=== PATIENT | male | born 1945 | race Caucasian/White ===

== ENCOUNTER 2020-01-19 08:35 | Outpatient (CLI) | payer MEDICARE ==
--- NOTE | 2020-01-19 10:14 | MRI ---
MRI lumbar spine noncontrast HISTORY: Low back pain. Radiculopathy. FINDINGS: Prominent leftward convex curvature correlates with findings corresponding radiographs. No evidence of compression fracture. There is desiccation of all of the intervertebral discs with mild discogenic endplate changes within the bone marrow. Images including the retroperitoneum show cortical cysts of the right kidney. T12-L1: Minimal disc bulge. Osteophytosis of the facets. Small bilateral Tarlov cysts. Central canal and left neural foramen are patent. Moderate stenosis of the right neural foramen. L1-2: Complete loss of disc space height. Minimal degenerative retrolisthesis. Posterior disc bulge a nd circumferential degenerative changes. Mild to moderate stenosis of the central canal. Severe right and mild to moderate left foraminal stenoses. L2-3: Complete loss of disc space height. Posterior osteophyte/disc complex and circumferential degen erative changes. Severe stenosis of the central canal. Moderate stenosis of each neural foramen. L3-4: Complete loss of disc space height. Mild posterior osteophyte/disc complex and circumferential degenerative changes. Severe stenosis of the central canal. Moderate right and severe left foraminal stenoses. L4-5: Near complete loss of disc space height. Posterior osteophyte/disc complex and circumferential degenerative changes. Very severe stenosis of the central canal. Moderate right and severe left foraminal stenoses. L5-S1: Osteophytosis of the facets. Central canal and neural foramina are patent. IMPRESSION : Prominent multilevel degenerative changes throughout the lumbar spine, with significant central canal and foraminal stenoses as detailed above. Central canal stenosis most severe at the L4-5 level.
--- NOTE | 2020-01-19 10:19 | RAD ---
LUMBAR SPINE 2 VIEWS: Date: 01/19/2020 INDICATION: 74-year-old male with lumbar radicular pain. COMPARISON: None. FINDINGS: There are five lumbar-type vertebrae. There is prominent levoscoliosis centered at L1-L2 of approxima tely 40 degrees. There is multilevel moderate disc degenerative disease. There is moderate facet oste oarthrosis at L4-5 and L5-S1. SI joints are normal appearing. No acute fracture or subluxation is not ed. Visualized bowel gas pattern is unobstructed. No suspicious calcifications are evident. IMPRESSION: Moderate lumbar spondylosis with levoscoliosis. POS: AH
--- NOTE | 2020-01-19 10:43 | RAD ---
SINUS SERIES 1 VIEW FOR MRI CLEARANCE: Date: 01/19/2020 COMPARISON: None. FINDINGS: No radiopaque foreign body is evident within the orbits. No air fluid level is evident. No definite d isplaced fracture is noted. IMPRESSION: No radiopaque foreign body that would preclude a MRI evaluation based on orbits. Recommend correlatio n with the clinical examination and patient's history for possible pacemaker placement. POS: AH
== END 2020-01-19 08:36 | disposition home or self-care (01) ==
LOC: BICMRI 08:35
PROVIDERS: ATTEND Family Medicine
DX: M47.26 Other spondylosis with radiculopathy, lumbar region (principal); M48.061 Spinal stenosis, lumbar region without neurogenic claudication; M41.9 Scoliosis, unspecified
CPT/HCPCS: 70210; 72100; 72148

== ENCOUNTER 2020-04-13 09:42 | Outpatient (CLI) | payer MEDICARE ==
--- NOTE | 2020-04-13 11:01 | CT ---
CT arteriogram chest with IV contrast and 3-D imaging HISTORY: Left atrial appendage ligation. FINDINGS: There is good contrast opacification of the pulmonary arteries and thoracic aorta with norm al branching of the great vessels at the aortic arch. Metallic device projecting left anterolaterally from the left atrium is at the level of the atrial appendage. No residual contrast ev ident within and appendageal cavity. Mild atelectasis at each lung base. No focal lung mass. No pleural fluid, pneumothorax, or mediastina l adenopathy. Old right rib fractures. Small hiatal hernia. Largest cyst of the right renal cortex measures up to 4.9 cm length on the axial images. IMPRESSION : Left atrial appendage occlusion device without residual cavity.
[2020-04-13] MEDS ORDERED: Iopamidol 370 76% 100 ML VIAL ONE (14:31)
== END 2020-04-13 09:43 | disposition home or self-care (01) ==
LOC: BICCT 09:42
PROVIDERS: ATTEND Internal Medicine Cardiovascular Disease
DX: Z48.813 Encounter for surgical aftercare following surgery on the respiratory system (principal); Z98.890 Other specified postprocedural states
CPT/HCPCS: 71275; 82565; Q9967

== ENCOUNTER 2020-05-18 05:44 | Day surgery (SDC) | payer MEDICARE ==
[2020-05-16 15:01] VITALS: BMI 35.2
[2020-05-18] MEDS ORDERED: Lidocaine 1% (PF) 30 ML VIAL ONE (06:37)
[2020-05-18] MEDS ORDERED: Fentanyl 100 MCG/2 ML VIAL ONE ×3 (06:44→09:51)
[2020-05-18] MEDS ORDERED: Heparin 10,000 UNITS/ 10 ML VIAL ONE (06:49)
[2020-05-18] MEDS ORDERED: PHENYLEPHRINE-NS 100 MCG/ML 10 ML SYRINGE ONE (08:59)
[2020-05-18] MEDS ORDERED: Glycopyrrolate 0.2 MG/ML 5 ML SYRINGE ONE (08:59)
[2020-05-18] MEDS ORDERED: Lidocaine 1% PF 5 ML VIAL ONE (08:59)
[2020-05-18] MEDS ORDERED: PROPOFOL 200 MG/20 ML VIAL ONE (08:59)
[2020-05-18] MEDS ORDERED: Dexamethasone 20 MG/5 ML VIAL ONE (08:59)
[2020-05-18] MEDS ORDERED: Rocuronium Bromide 10 MG/ML (10ML VIAL) ONE (08:59)
[2020-05-18] MEDS ORDERED: Ondansetron PF 4 MG/2 ML Vial ONE (08:59)
--- NOTE | 2020-05-18 09:36 | OP ---
DATE OF PROCEDURE: 05/18/2020 PRIMARY CARE PHYSICIAN: Davy Terry MD REFERRING HOURLY SHIFT MANAGER: New Izaguirre MD PREOPERATIVE DIAGNOSIS: Typical atrial flutter. POSTOPERATIVE DIAGNOSIS: Typical counter-clockwise right atrial flutter. PROCEDURES PERFORMED: 1. Cavotricuspid isthmus ablation. 2. Left atrial pacing and recording. 3. 3D mapping of arrhythmia. HOURLY SHIFT MANAGER: Williams Pugh MD EVAPORATOR OPERATOR MOLASSES: None. ANESTHESIA: General endotracheal. SPECIMENS: None. ESTIMATED BLOOD LOSS: 20 mL. COMPLICATIONS: None. DESCRIPTION OF PROCEDURE: The risks, benefits, and alternatives of transesophageal echocardiogram and radiofrequency ablation were discussed prior to the procedure. The patient was brought electively to the electrophysiology suite. Transesophageal echocardiogram showed no evidence of thrombus. There was an intact left atrial appendage ligation with mild left atrial enlargement, ejection fraction of 60%, and aortic sclerosis. There was mild mitral regurgitation and mild tricuspid regurgitation. Bilateral femoral areas are prepped and draped in a sterile fashion. Lidocaine was infiltrated in the bilateral femoral areas. Using ultrasound, 2 long 7-Tu[place] sheaths were placed in the left femoral vein and an Agilis sheath was placed in the right femoral vein. Catheters were advanced under 3D guidance, and 3D mapping was used to guide the ablation. A 20-pole catheter was placed in the lateral right atrium. A decapolar catheter was placed in the coronary sinus. Left atrial pacing and recording were performed. Using a TactiCath catheter and Agilis sheath, mapping confirmed that the tachycardia was typical counter-clockwise right atrial flutter. Tachycardia cycle length 241 milliseconds. Radiofrequency energy was then applied to the cavotricuspid isthmus. So, the tachycardia terminated during the ablation. [id number] and chcvecn-ke-tazjht block were confirmed 20 minutes after the last radiofrequency application. Conduction across the isthmus was 187 milliseconds. Sheaths were pulled at the end of case. Vascade closure devices were used. The patient was extubated and transferred to recovery area in good condition. CONCLUSION: 1. Typical atrial flutter. 2. Successful cavotricuspid isthmus ablation. PLAN: 1. Discharge home. 2. Continue Eliquis for 1 month. 3. Follow up with CECILIA Stanton, June 12, 2020 at 11 a.m. Job ID: [id number]
--- NOTE | 2020-05-18 21:04 | EKG ---
Test Reason : POST ABLATION Blood Pressure : / mmHG Vent. Rate : 082 BPM Atrial Rate : 082 BPM P-R Int : 214 ms QRS Dur : 120 ms QT Int : 418 ms P-R-T Axes : 062 -41 038 degrees QTc Int : 488 ms Sinus rhythm with 1st degree A-V block Left axis deviation Non-specific intra-ventricular conduction delay Abnormal ECG No previous ECGs available Confirmed by Lalo HUNTER ([id number]) on 05/18/2020 9:04:48 PM Referred By: PATRICIA Confirmed By:Lalo HUNTER
== END 2020-05-18 13:40 | disposition home or self-care (01) ==
LOC: CCL 05:44
PROVIDERS: ATTEND Internal Medicine Cardiovascular Disease
PROC: 02583ZZ Destruction of Conduction Mechanism, Percutaneous Approach (ICD-10-PCS; principal; 2020-05-18)
PROC: 02K83ZZ Map Conduction Mechanism, Percutaneous Approach (ICD-10-PCS; 2020-05-18)
DX: I48.3 Typical atrial flutter (principal); I10 Essential (primary) hypertension; I25.10 Atherosclerotic heart disease of native coronary artery without angina pectoris; I25.2 Old myocardial infarction; E78.5 Hyperlipidemia, unspecified; E66.9 Obesity, unspecified; Z68.35 Body mass index [BMI] 35.0-35.9, adult; Z79.01 Long term (current) use of anticoagulants; Z79.82 Long term (current) use of aspirin; Z79.899 Other long term (current) drug therapy; Z87.891 Personal history of nicotine dependence; Z95.1 Presence of aortocoronary bypass graft; Z96.651 Presence of right artificial knee joint
CPT/HCPCS: 76942; 93005; 93010; 93312; 93613; 93653; C1731; C1894; C2630; J1100; J1644; J2001; J2405; J2704; J3010

== ENCOUNTER 2020-06-15 10:48 | Outpatient (CLI) | payer MEDICARE ==
[2020-05-15 12:33] LABS: Mean Corpuscular HGB CONC 32.9 g/dL (32.0-36.0); Mean Corpuscular Hemoglobin 29.9 pg (27.0-33.0); Mean Platelet Volume 9.1 fl (7.4-10.4); Platelet Count 224 10x3/uL (150-450); RBC Distribution Width 13.2 % (11.5-14.5); Red Blood Cell (RBC) Count 5.01 10x6/uL (4.32-5.72); White Blood Cell (WBC) Count 6.8 10x3/uL (3.5-10.5)
[2020-05-15 12:47] LABS: INR-International Normal Ratio 1.1; Prothrombin Time 11.1 sec (9.5-12.1)
[2020-05-15 13:16] LABS: Anion Gap 16 mmol/L (10-20); BUN (Urea Nitrogen) 19 mg/dL (8.4-25.7); Calc. Creatinine Clearance 0 mL/min (70-130); Carbon Dioxide 25 mmol/L (23-31); Chloride 103 mmol/L (98-107); Glucose 113 mg/dL (83-110); Potassium 4.7 mmol/L (3.5-5.1); Sodium 139 mmol/L (136-145)
[2020-05-16 03:44] LABS: SARS-CoV-2 PCR by NAA Not Detected (NotDetected)
[2020-06-08 11:08] LABS: Hemoglobin 14.7 g/dL (13.5-17.5); Mean Corpuscular Volume 90.8 fl (81.2-95.1); Mean Platelet Volume 9.6 fl (7.4-10.4); Platelet Count 202 10x3/uL (150-450); RBC Distribution Width 13.1 % (11.5-14.5)
[2020-06-08 11:15] LABS: Anion Gap 12 mmol/L (10-20); BUN (Urea Nitrogen) 15 mg/dL (8.4-25.7); Calc. Creatinine Clearance 0 mL/min (70-130); Calcium 8.9 mg/dL (7.8-10.44); Carbon Dioxide 30 mmol/L (23-31); Chloride 103 mmol/L (98-107); Glucose 92 mg/dL (83-110); Potassium 4.6 mmol/L (3.5-5.1); Sodium 140 mmol/L (136-145)
[2020-06-08 11:20] LABS: PTT 30.2 sec (22.0-33.0)
[2020-06-08 20:25] LABS: SARS-CoV-2 PCR by NAA Not Detected (NotDetected)
[2020-06-15 22:32] LABS: SARS-CoV-2 PCR by NAA Not Detected (NotDetected)
== END 2020-06-15 10:49 | disposition home or self-care (01) ==
LOC: LABBT 10:48
PROVIDERS: ATTEND Surgery
DX: Z01.818 Encounter for other preprocedural examination (principal); M54.16 Radiculopathy, lumbar region; M48.062 Spinal stenosis, lumbar region with neurogenic claudication; Z20.822 Contact with and (suspected) exposure to COVID-19
CPT/HCPCS: 80048 ×2; 85027 ×2; 85610 ×2; 85730; U0003 ×2; U0005 ×2; 87635

== ENCOUNTER 2020-06-20 08:09 | Inpatient (IN) | payer MEDICARE ==
[2020-06-19 11:41] VITALS: BMI 35.2
[2020-06-20] MEDS ORDERED: Thrombin 5000 UNITS/5 ML VIAL ONE (10:05)
[2020-06-20] MEDS ORDERED: Fentanyl 250 MCG/5 ML VIAL ONE (10:15)
[2020-06-20] MEDS ORDERED: Glycopyrrolate 0.2 MG/ML 5 ML SYRINGE ONE (10:28)
[2020-06-20] MEDS ORDERED: Rocuronium Bromide 10 MG/ML (10ML VIAL) ONE (10:28)
[2020-06-20] MEDS ORDERED: PROPOFOL 200 MG/20 ML VIAL ONE (10:28)
[2020-06-20] MEDS ORDERED: Lidocaine 1% PF 5 ML VIAL ONE (10:28)
[2020-06-20] MEDS ORDERED: ePHEDrine 50 MG/ML VIAL ONE (10:28)
[2020-06-20] MEDS ORDERED: PHENYLEPHRINE-NS 100 MCG/ML 10 ML SYRINGE ONE (10:28)
[2020-06-20] MEDS ORDERED: Ondansetron PF 4 MG/2 ML Vial ONE (10:28)
[2020-06-20] MEDS ORDERED: Phenylephrine 10 MG/ML VIAL ONE (11:09)
[2020-06-20] MEDS ORDERED: Promethazine HCl 25 MG/ML VIAL SLOW IVP PRN (12:50)
[2020-06-20] MEDS ORDERED: Promethazine HCl 25 MG/ML VIAL IM PRN (12:50)
[2020-06-20] MEDS ORDERED: Ondansetron HCl/PF 4 MG/2 ML Vial IVP PRN (12:50)
[2020-06-20] MEDS ORDERED: Morphine 2 MG/ML VIAL SLOW IVP PRN (12:58)
[2020-06-20] MEDS ORDERED: Milk Of Magnesia 30 ML UDCUP PO PRN (12:58)
[2020-06-20] MEDS ORDERED: traMADol HCl 50 MG TAB PO PRN (12:58)
[2020-06-20] MEDS ORDERED: Acetaminophen/Codeine 30-300mg Tablet PO PRN (12:58)
[2020-06-20] MEDS ORDERED: Fentanyl 100 MCG/2 ML VIAL ONE ×2 (13:55→14:46)
[2020-06-20] MEDS ORDERED: HYDROmorphone 2 MG/ML VIAL ONE (14:52)
[2020-06-20] MEDS: CEFAZOLIN 2 GM in Premix Bag 1 BAG IVPB SCH ×2 (18:01→23:05)
[2020-06-20] MEDS: Metoprolol Tartrate 25 MG TAB PO SCH (20:10)
[2020-06-20] MEDS: tiZANidine HCl 4 MG TAB PO PRN (20:10)
[2020-06-20] MEDS: Sodium Chloride 0.9% 1,000 ML IV SCH ×2 (20:11→23:23)
[2020-06-20] MEDS: Ondansetron PF 4 MG/2 ML Vial IVP PRN (23:06)
[2020-06-20] MEDS: HYDROcodone/Acetaminophen 7.5/325 mg Tablet PO PRN (23:06)
[2020-06-21] MEDS: tiZANidine HCl 4 MG TAB PO PRN ×3 (05:43→22:05)
[2020-06-21] MEDS: HYDROcodone/Acetaminophen 7.5/325 mg Tablet PO PRN ×4 (05:44→22:05)
[2020-06-21] MEDS: FLUoxetine HCl 20 MG CAP PO SCH (09:28)
[2020-06-21] MEDS: Atorvastatin Calcium 10 MG TAB PO SCH (09:31)
[2020-06-21] MEDS: Metoprolol Tartrate 25 MG TAB PO SCH ×2 (09:33→20:56)
[2020-06-21] MEDS: Amlodipine 10 MG TAB PO SCH (17:34)
[2020-06-21] MEDS: Potassium Chloride 20 MEQ TAB PO SCH (17:34)
[2020-06-21] MEDS: Furosemide 20 MG TAB PO SCH (17:34)
[2020-06-21] MEDS: Sodium Chloride 0.9% 1,000 ML IV SCH (17:35)
[2020-06-21] MEDS ORDERED: Sodium Chloride 0.9% 500 ML IVPB SCH (21:15)
[2020-06-22] MEDS: HYDROcodone/Acetaminophen 7.5/325 mg Tablet PO PRN ×4 (03:38→20:39)
[2020-06-22] MEDS: Sodium Chloride 0.9% 1,000 ML IV SCH ×2 (04:51→18:23)
[2020-06-22] MEDS: tiZANidine HCl 4 MG TAB PO PRN (06:12)
[2020-06-22] MEDS ORDERED: Polyethylene Glycol 3350 17 GM Packet PO PRN (07:49)
[2020-06-22] MEDS ORDERED: Bisacodyl 10 MG SUPP PR SCH (08:00)
[2020-06-22] MEDS: Docusate 100 MG CAP PO SCH ×2 (08:27→20:39)
[2020-06-22] MEDS: FLUoxetine HCl 20 MG CAP PO SCH (08:28)
[2020-06-22] MEDS: Atorvastatin Calcium 10 MG TAB PO SCH (08:28)
[2020-06-22] MEDS: Metoprolol Tartrate 25 MG TAB PO SCH ×2 (08:28→20:38)
[2020-06-22] MEDS: Amlodipine 10 MG TAB PO SCH (08:29)
[2020-06-22] MEDS: Potassium Chloride 20 MEQ TAB PO SCH (08:32)
[2020-06-22] MEDS: Furosemide 20 MG TAB PO SCH (08:32)
[2020-06-22] MEDS ORDERED: Diazepam 5 MG TAB PO SCH (12:00)
[2020-06-22] MEDS: Diazepam 5 MG TAB PO SCH ×2 (18:02→21:46)
[2020-06-23] MEDS: Mag-Al 1200 mg/1200 mg/30 ML UDCUP PO PRN (00:40)
[2020-06-23] MEDS: hydrALAZINE 20 MG/ML VIAL SLOW IVP PRN (03:55)
[2020-06-23] MEDS: tiZANidine HCl 4 MG TAB PO PRN (04:50)
[2020-06-23] MEDS: Diazepam 5 MG TAB PO SCH ×3 (06:02→22:28)
[2020-06-23] MEDS: Sodium Chloride 0.9% 1,000 ML IV SCH ×2 (08:26→21:13)
[2020-06-23] MEDS: FLUoxetine HCl 20 MG CAP PO SCH (08:35)
[2020-06-23] MEDS: Docusate 100 MG CAP PO SCH ×2 (08:36→21:12)
[2020-06-23] MEDS: Atorvastatin Calcium 10 MG TAB PO SCH (08:36)
[2020-06-23] MEDS: Amlodipine 10 MG TAB PO SCH (08:37)
[2020-06-23] MEDS: Metoprolol Tartrate 25 MG TAB PO SCH ×2 (08:37→21:12)
[2020-06-23] MEDS: Potassium Chloride 20 MEQ TAB PO SCH (08:40)
[2020-06-23] MEDS: Furosemide 20 MG TAB PO SCH (08:40)
[2020-06-23] MEDS: Ondansetron PF 4 MG/2 ML Vial IVP PRN (18:32)
[2020-06-24] MEDS: hydrALAZINE 20 MG/ML VIAL SLOW IVP PRN (04:04)
[2020-06-24] MEDS: Ondansetron PF 4 MG/2 ML Vial IVP PRN (06:12)
[2020-06-24] MEDS: Diazepam 5 MG TAB PO SCH ×3 (06:12→19:22)
[2020-06-24] MEDS: Mag-Al 1200 mg/1200 mg/30 ML UDCUP PO PRN (06:12)
[2020-06-24] MEDS: Metoprolol Tartrate 25 MG TAB PO SCH ×2 (09:03→20:38)
[2020-06-24] MEDS: Atorvastatin Calcium 10 MG TAB PO SCH (09:04)
[2020-06-24] MEDS: Potassium Chloride 20 MEQ TAB PO SCH (09:05)
[2020-06-24] MEDS: Furosemide 20 MG TAB PO SCH (09:06)
[2020-06-24] MEDS: Amlodipine 10 MG TAB PO SCH (09:06)
[2020-06-24] MEDS: FLUoxetine HCl 20 MG CAP PO SCH (09:06)
[2020-06-24] MEDS: Docusate 100 MG CAP PO SCH ×2 (09:06→20:38)
[2020-06-24] MEDS: Sodium Chloride 0.9% 1,000 ML IV SCH ×2 (10:19→20:37)
[2020-06-24] MEDS: Bisacodyl 10 MG SUPP PR PRN (10:26)
[2020-06-24] MEDS ORDERED: Fleet Enema 133 ML BOT PR SCH (10:30)
[2020-06-24 14:02] LABS: Hemoglobin 13.6 g/dL (14.0-18.0); Mean Corpuscular HGB CONC 33.4 g/dL (32.0-36.0); Mean Corpuscular Hemoglobin 30.6 pg (27.0-31.0); Mean Corpuscular Volume 91.6 fL (78.0-98.0); Platelet Count 256 thou/uL (130-400); RBC Distribution Width 12.7 % (11.5-14.5); Red Blood Cell (RBC) Count 4.45 mill/uL (4.70-6.10)
[2020-06-24 14:16] LABS: Lactic Acid 1.9 mmol/L (0.5-2.2)
[2020-06-24 14:20] LABS: ALT (SGPT) 13 U/L (8-55); AST (SGOT) 17 U/L (5-34); Albumin 3.6 g/dL (3.4-4.8); Alkaline Phosphatase 106 U/L (40-110); Anion Gap 20 mmol/L (10-20); BUN (Urea Nitrogen) 87 mg/dL (8.4-25.7); Bilirubin, Total 1.1 mg/dL (0.2-1.2); Calc. Creatinine Clearance 16 mL/min (70-130); Calcium 9.3 mg/dL (7.8-10.44); Carbon Dioxide 22 mmol/L (23-31); Chloride 97 mmol/L (98-107); Globulin 3.8 g/dL (2.4-3.5); Glucose 126 mg/dL (83-110); Magnesium 3.2 mg/dL (1.6-2.6); Potassium 4.9 mmol/L (3.5-5.1); Protein, Total 7.4 g/dL (5.8-8.1); Sodium 134 mmol/L (136-145)
[2020-06-24 14:24] LABS: Band 2 % (5-11); Lymphocytes 3 % (21-51); MDiff Complete? YES; Monocytes 10 % (0-10); Neutrophil 85 % (42-75); Platelet Morphology Comment Appears Adequate; Polychromasia SLIGHT = 2-3 cells (100X) (0-2/hpf); Vacuoles SLIGHT
[2020-06-24] MEDS: Acetaminophen 325 MG TAB PO PRN (17:58)
[2020-06-24 20:40] LABS: Phosphorus 6.3 mg/dL (2.3-4.7)
[2020-06-25 05:01] LABS: Hemoglobin 11.9 g/dL (14.0-18.0); Mean Corpuscular HGB CONC 33.2 g/dL (32.0-36.0); Mean Corpuscular Hemoglobin 30.2 pg (27.0-31.0); Mean Corpuscular Volume 91.1 fL (78.0-98.0); Mean Platelet Volume 6.9 fL (7.4-10.4); Platelet Count 213 thou/uL (130-400); RBC Distribution Width 12.6 % (11.5-14.5); Red Blood Cell (RBC) Count 3.92 mill/uL (4.70-6.10); White Blood Cell (WBC) Count 12.9 thou/uL (4.8-10.8)
[2020-06-25 05:12] LABS: Lactic Acid 0.7 mmol/L (0.5-2.2)
[2020-06-25 05:18] LABS: Band 12 % (5-11); Eosinophils 1 % (0-10); Lymphocytes 4 % (21-51); MDiff Complete? YES; Monocytes 9 % (0-10); Neutrophil 74 % (42-75); Platelet Morphology Comment Appears Adequate
[2020-06-25 05:19] LABS: Anion Gap 21 mmol/L (10-20); BUN (Urea Nitrogen) 109 mg/dL (8.4-25.7); Calc. Creatinine Clearance 14 mL/min (70-130); Calcium 8.5 mg/dL (7.8-10.44); Carbon Dioxide 18 mmol/L (23-31); Chloride 99 mmol/L (98-107); Glucose 114 mg/dL (83-110); Magnesium 3.2 mg/dL (1.6-2.6); Potassium 5.2 mmol/L (3.5-5.1); Sodium 133 mmol/L (136-145)
[2020-06-25] MEDS: Diazepam 5 MG TAB PO SCH ×3 (05:51→22:57)
[2020-06-25] MEDS: Sodium Chloride 0.9% 1,000 ML IV SCH ×3 (06:12→23:16)
[2020-06-25 07:37] LABS: Bilirubin Negative (Negative); Blood, Urine 2+ (Negative); Clarity Turbid (Clear); Glucose, Urine (Dipstick) Normal (Negative); Ketone, Urine Negative (Negative); Leukocyte 500 Leu/uL (Negative); Nitrite Negative (Negative); Protein, Urine (Dipstick) Negative (Neg-Trace); RBC/HPF 21-50 HPF (0-3); Specific Gravity, Urine 1.014 (1.002-1.036); Squamous Epithelial 0-3 HPF (0-3); Urobilinogen Normal mg/dL (Less than 2); WBC/HPF Greater than 50 HPF (0-3)
[2020-06-25 07:38] LABS: Bacteria/HPF 1+ HPF (None Seen)
[2020-06-25 07:39] LABS: Urine Culture Reflex Yes Yes
[2020-06-25 07:48] LABS: Potassium, Urine 34.4 mmol/L
[2020-06-25] MEDS: FLUoxetine HCl 20 MG CAP PO SCH (09:20)
[2020-06-25] MEDS: Atorvastatin Calcium 10 MG TAB PO SCH (09:21)
[2020-06-25] MEDS: Amlodipine 10 MG TAB PO SCH (09:21)
[2020-06-25] MEDS: Docusate 100 MG CAP PO SCH ×2 (09:22→20:32)
[2020-06-25] MEDS: Metoprolol Tartrate 25 MG TAB PO SCH ×2 (09:24→20:32)
[2020-06-25] MEDS: cefTRIAXone\\ROCEPHIN 2 GM in Sodium Chloride 0.9% 100 ML IVPB SCH (12:04)
[2020-06-25 12:30] LABS: Anion Gap 18 mmol/L (10-20); BUN (Urea Nitrogen) 91 mg/dL (8.4-25.7); Calc. Creatinine Clearance 22 mL/min (70-130); Calcium 8.9 mg/dL (7.8-10.44); Carbon Dioxide 20 mmol/L (23-31); Chloride 103 mmol/L (98-107); Glucose 122 mg/dL (83-110); Potassium 4.5 mmol/L (3.5-5.1); Sodium 136 mmol/L (136-145)
[2020-06-25] MEDS: Tamsulosin HCl 0.4 MG CAP PO SCH (20:33)
[2020-06-26 05:25] LABS: Anion Gap 14 mmol/L (10-20); BUN (Urea Nitrogen) 45 mg/dL (8.4-25.7); Calc. Creatinine Clearance 88 mL/min (70-130); Calcium 8.5 mg/dL (7.8-10.44); Carbon Dioxide 22 mmol/L (23-31); Chloride 111 mmol/L (98-107); Glucose 107 mg/dL (83-110); Potassium 4.4 mmol/L (3.5-5.1); Sodium 143 mmol/L (136-145)
[2020-06-26 05:26] LABS: Hemoglobin 11.5 g/dL (14.0-18.0); MDiff Complete? YES; Mean Corpuscular HGB CONC 32.9 g/dL (32.0-36.0); Mean Corpuscular Hemoglobin 30.2 pg (27.0-31.0); Mean Corpuscular Volume 91.8 fL (78.0-98.0); Mean Platelet Volume 6.9 fL (7.4-10.4); Platelet Count 214 thou/uL (130-400); RBC Distribution Width 12.7 % (11.5-14.5); Red Blood Cell (RBC) Count 3.79 mill/uL (4.70-6.10); White Blood Cell (WBC) Count 8.2 thou/uL (4.8-10.8)
[2020-06-26 05:27] LABS: Hypochromia SLIGHT = 6-15 cells (100X) (0-5/hpf); Lymphocytes 4 % (21-51); Monocytes 10 % (0-10); Neutrophil 86 % (42-75); Platelet Morphology Comment Appears Adequate
[2020-06-26] MEDS: Diazepam 5 MG TAB PO SCH ×3 (06:22→21:10)
[2020-06-26] MEDS: Dextrose 5% in Water 1,000 ML IV SCH ×2 (08:08→21:10)
[2020-06-26] MEDS: Docusate 100 MG CAP PO SCH ×2 (08:10→20:50)
[2020-06-26] MEDS: Amlodipine 10 MG TAB PO SCH (08:10)
[2020-06-26] MEDS: Metoprolol Tartrate 25 MG TAB PO SCH ×2 (08:10→20:48)
[2020-06-26] MEDS: FLUoxetine HCl 20 MG CAP PO SCH (08:10)
[2020-06-26] MEDS: Atorvastatin Calcium 10 MG TAB PO SCH (08:10)
[2020-06-26] MEDS ORDERED: Fleet Enema 133 ML BOT PR SCH (09:15)
[2020-06-26] MEDS: Bisacodyl 10 MG SUPP PR PRN (09:51)
[2020-06-26] MEDS ORDERED: MD-Gastroview 120 ML BOT ONE (11:10)
[2020-06-26] MEDS: cefTRIAXone\\ROCEPHIN 2 GM in Sodium Chloride 0.9% 100 ML IVPB SCH (12:17)
[2020-06-26] MEDS: Acetaminophen 325 MG TAB PO PRN (13:42)
[2020-06-26] MEDS: Tamsulosin HCl 0.4 MG CAP PO SCH (20:48)
[2020-06-27] MEDS: Dextrose 5% in Water 1,000 ML IV SCH ×2 (04:30→18:08)
[2020-06-27] MEDS: Diazepam 5 MG TAB PO SCH ×3 (05:10→21:46)
[2020-06-27 06:03] LABS: Anion Gap 12 mmol/L (10-20); BUN (Urea Nitrogen) 27 mg/dL (8.4-25.7); Calc. Creatinine Clearance 140 mL/min (70-130); Calcium 8.6 mg/dL (7.8-10.44); Carbon Dioxide 28 mmol/L (23-31); Chloride 112 mmol/L (98-107); Glucose 112 mg/dL (83-110); Potassium 3.7 mmol/L (3.5-5.1); Sodium 148 mmol/L (136-145)
[2020-06-27 06:11] LABS: Band 2 % (5-11); Hemoglobin 11.8 g/dL (14.0-18.0); Lymphocytes 8 % (21-51); MDiff Complete? YES; Mean Corpuscular Hemoglobin 30.7 pg (27.0-31.0); Mean Corpuscular Volume 93.2 fL (78.0-98.0); Mean Platelet Volume 6.5 fL (7.4-10.4); Monocytes 18 % (0-10); Myelocyte 1 % (0-0); Neutrophil 71 % (42-75); Platelet Count 240 thou/uL (130-400); Platelet Morphology Comment Appears Adequate; RBC Distribution Width 12.5 % (11.5-14.5); Red Blood Cell (RBC) Count 3.84 mill/uL (4.70-6.10); White Blood Cell (WBC) Count 8.1 thou/uL (4.8-10.8)
[2020-06-27] MEDS: Polyethylene Glycol 3350 17 GM Packet PO SCH (08:57)
[2020-06-27] MEDS: Amlodipine 10 MG TAB PO SCH (08:58)
[2020-06-27] MEDS: Senokot S 8.6-50 MG TAB PO SCH ×2 (08:58→21:47)
[2020-06-27] MEDS: Docusate 100 MG CAP PO SCH ×2 (08:58→21:44)
[2020-06-27] MEDS: Metoprolol Tartrate 25 MG TAB PO SCH ×2 (08:58→21:44)
[2020-06-27] MEDS: FLUoxetine HCl 20 MG CAP PO SCH (08:59)
[2020-06-27] MEDS: Atorvastatin Calcium 10 MG TAB PO SCH (08:59)
[2020-06-27] MEDS: tiZANidine HCl 4 MG TAB PO PRN ×2 (09:06→22:51)
[2020-06-27] MEDS: Acetaminophen 325 MG TAB PO PRN ×2 (09:06→22:50)
[2020-06-27] MEDS: cefTRIAXone\\ROCEPHIN 2 GM in Sodium Chloride 0.9% 100 ML IVPB SCH (11:47)
[2020-06-27] MEDS: Ciprofloxacin 500 MG TAB PO SCH (21:44)
[2020-06-27] MEDS: Tamsulosin HCl 0.4 MG CAP PO SCH (21:44)
[2020-06-27] MEDS: Melatonin 3 MG TAB PO PRN (22:50)
[2020-06-28] MEDS: Diazepam 5 MG TAB PO SCH ×3 (01:10→20:04)
[2020-06-28] MEDS: Ciprofloxacin 500 MG TAB PO SCH ×2 (06:28→19:54)
[2020-06-28] MEDS: Dextrose 5% in Water 1,000 ML IV SCH (06:28)
[2020-06-28] MEDS: Senokot S 8.6-50 MG TAB PO SCH ×2 (08:36→19:54)
[2020-06-28] MEDS: Docusate 100 MG CAP PO SCH ×2 (08:36→20:03)
[2020-06-28] MEDS: tiZANidine HCl 4 MG TAB PO PRN ×2 (08:36→19:54)
[2020-06-28] MEDS: Atorvastatin Calcium 10 MG TAB PO SCH (08:36)
[2020-06-28] MEDS: FLUoxetine HCl 20 MG CAP PO SCH (08:37)
[2020-06-28] MEDS: Amlodipine 10 MG TAB PO SCH (08:37)
[2020-06-28] MEDS: Metoprolol Tartrate 25 MG TAB PO SCH ×2 (08:37→19:54)
[2020-06-28] MEDS: Polyethylene Glycol 3350 17 GM Packet PO SCH (08:39)
[2020-06-28 08:46] LABS: ALT (SGPT) 19 U/L (8-55); AST (SGOT) 14 U/L (5-34); Albumin 2.9 g/dL (3.4-4.8); Alkaline Phosphatase 109 U/L (40-110); Anion Gap 11 mmol/L (10-20); BUN (Urea Nitrogen) 16 mg/dL (8.4-25.7); Bilirubin, Total 0.5 mg/dL (0.2-1.2); Calc. Creatinine Clearance 146 mL/min (70-130); Calcium 8.2 mg/dL (7.8-10.44); Carbon Dioxide 29 mmol/L (23-31); Chloride 105 mmol/L (98-107); Glucose 113 mg/dL (83-110); Potassium 3.7 mmol/L (3.5-5.1); Protein, Total 5.9 g/dL (5.8-8.1); Sodium 141 mmol/L (136-145)
[2020-06-28] MEDS: Acetaminophen 325 MG TAB PO PRN ×2 (14:50→19:55)
[2020-06-28] MEDS: Tamsulosin HCl 0.4 MG CAP PO SCH (19:53)
[2020-06-28] MEDS: Melatonin 3 MG TAB PO PRN (22:31)
[2020-06-29] MEDS: Ciprofloxacin 500 MG TAB PO SCH (04:35)
[2020-06-29] MEDS: Acetaminophen 325 MG TAB PO PRN ×2 (04:35→14:01)
[2020-06-29] MEDS: tiZANidine HCl 4 MG TAB PO PRN ×2 (04:35→14:01)
[2020-06-29] MEDS: Diazepam 5 MG TAB PO SCH ×2 (06:45→13:22)
[2020-06-29] MEDS: Atorvastatin Calcium 10 MG TAB PO SCH (08:44)
[2020-06-29] MEDS: FLUoxetine HCl 20 MG CAP PO SCH (08:44)
[2020-06-29] MEDS: Docusate 100 MG CAP PO SCH (08:44)
[2020-06-29] MEDS: Metoprolol Tartrate 25 MG TAB PO SCH (08:44)
[2020-06-29] MEDS: Senokot S 8.6-50 MG TAB PO SCH (08:44)
[2020-06-29] MEDS: Polyethylene Glycol 3350 17 GM Packet PO SCH (08:45)
[2020-06-29] MEDS: Amlodipine 10 MG TAB PO SCH (08:47)
[2020-06-29 15:50] VITALS: BP 102/61; TEMP 98.1
== END 2020-06-29 16:22 | DRG 519 ==
LOC: SDC 08:09 → SJJU 08:10 → SDC 06-23 10:14 → SJJU 06-23 10:14
PROVIDERS: ADMIT Surgery; ATTEND Surgery
PROC: 01NB0ZZ Release Lumbar Nerve, Open Approach (ICD-10-PCS; principal; 2020-06-20)
PROC: 00NY0ZZ Release Lumbar Spinal Cord, Open Approach (ICD-10-PCS; 2020-06-20)
DX: M48.062 Spinal stenosis, lumbar region with neurogenic claudication (principal); K56.7 Ileus, unspecified; N17.9 Acute kidney failure, unspecified; E87.2 Acidosis; N39.0 Urinary tract infection, site not specified; K91.89 Other postprocedural complications and disorders of digestive system; I48.92 Unspecified atrial flutter; N13.30 Unspecified hydronephrosis; M54.16 Radiculopathy, lumbar region; I25.10 Atherosclerotic heart disease of native coronary artery without angina pectoris; I10 Essential (primary) hypertension; M19.90 Unspecified osteoarthritis, unspecified site; E78.5 Hyperlipidemia, unspecified; F39 Unspecified mood [affective] disorder; N13.9 Obstructive and reflux uropathy, unspecified; N40.1 Benign prostatic hyperplasia with lower urinary tract symptoms; K21.9 Gastro-esophageal reflux disease without esophagitis; E86.9 Volume depletion, unspecified; R33.9 Retention of urine, unspecified; D72.829 Elevated white blood cell count, unspecified; I25.2 Old myocardial infarction; Z95.1 Presence of aortocoronary bypass graft
CPT/HCPCS: 36415; 71045; 74018; 74176; 74250; 76000; 76770; 80048; 80053; 81001; 82436; 83605; 83735; 83935; 84100; 84105; 84133; 84300; 84560; 85025; 87077; 87086; 87186; 93970; J0360; J0690; J0696; J1170; J2370; J2405; J2704; J3010; J3370; J3490; J7030; Q9963

== ENCOUNTER 2020-07-27 11:15 | Outpatient (CLI) | payer MEDICARE ==
[2020-07-27 12:36] LABS: Hemoglobin 12.2 g/dL (13.5-17.5); Mean Corpuscular HGB CONC 32.5 g/dL (32.0-36.0); Mean Corpuscular Hemoglobin 29.4 pg (27.0-33.0); Mean Corpuscular Volume 90.4 fl (81.2-95.1); Mean Platelet Volume 9.5 fl (7.4-10.4); Platelet Count 198 10x3/uL (150-450); RBC Distribution Width 13.7 % (11.5-14.5); Red Blood Cell (RBC) Count 4.15 10x6/uL (4.32-5.72); White Blood Cell (WBC) Count 12.3 10x3/uL (3.5-10.5)
[2020-07-27 12:49] LABS: Anion Gap 18 mmol/L (10-20); BUN (Urea Nitrogen) 16 mg/dL (8.4-25.7); Calc. Creatinine Clearance 0 mL/min (70-130); Carbon Dioxide 24 mmol/L (23-31); Chloride 101 mmol/L (98-107); Glucose 101 mg/dL (83-110); Potassium 4.2 mmol/L (3.5-5.1); Sodium 139 mmol/L (136-145)
[2020-07-27 20:47] LABS: SARS-CoV-2 PCR by NAA Not Detected (NotDetected)
== END 2020-07-27 11:16 | disposition home or self-care (01) ==
LOC: LABBT 11:15
PROVIDERS: ATTEND Urology
DX: Z01.818 Encounter for other preprocedural examination (principal); N40.1 Benign prostatic hyperplasia with lower urinary tract symptoms; R33.9 Retention of urine, unspecified; Z20.822 Contact with and (suspected) exposure to COVID-19
CPT/HCPCS: 80048; 85027; 93005; U0003; U0005; 87635; 93010

== ENCOUNTER 2020-08-01 08:39 | Day surgery (SDC) | payer MEDICARE ==
[2020-07-31 14:08] VITALS: BMI 32.5
[2020-08-01] MEDS ORDERED: PROPOFOL 200 MG/20 ML VIAL ONE (11:19)
[2020-08-01] MEDS ORDERED: Lidocaine 1% PF 5 ML VIAL ONE (11:19)
[2020-08-01] MEDS ORDERED: Levofloxacin 500 mg/D5W 100 ml Premix Bag ONE (11:29)
[2020-08-01] MEDS ORDERED: Oxybutynin 5 MG TAB ONE (12:02)
[2020-08-01] MEDS ORDERED: Ketorolac Tromethamine 30 MG/ML VIAL ONE (12:02)
[2020-08-01] MEDS ORDERED: Phenazopyridine HCl 100 MG TAB ONE (12:02)
== END 2020-08-01 15:20 | disposition home or self-care (01) ==
LOC: SDC 08:39
PROVIDERS: ATTEND Urology
PROC: 0T7D8DZ Dilation of Urethra with Intraluminal Device, Via Natural or Artificial Opening Endoscopic (ICD-10-PCS; principal; 2020-08-01)
DX: N40.1 Benign prostatic hyperplasia with lower urinary tract symptoms (principal); R33.8 Other retention of urine; N13.30 Unspecified hydronephrosis; N13.8 Other obstructive and reflux uropathy; N32.89 Other specified disorders of bladder; I10 Essential (primary) hypertension; M19.90 Unspecified osteoarthritis, unspecified site; Z79.82 Long term (current) use of aspirin; Z79.899 Other long term (current) drug therapy; Z87.891 Personal history of nicotine dependence; Z96.651 Presence of right artificial knee joint
CPT/HCPCS: C9740; L8699; J1885; J1956; J2704

== ENCOUNTER 2021-07-30 11:40 | Outpatient (CLI) | payer MEDICARE ==
[2021-07-30 12:45] LABS: #Eosinphils 0.2 10x3/uL (0.0-0.5); #Monocytes 0.7 10x3/uL (0.0-1.1); #Neutrophils 4.1 10x3/uL (1.5-8.4); %Basophils 0.6 % (0.0-2.0); %Eosinophils 2.4 % (0.0-6.0); %Lymphocytes 20.8 % (18.0-47.0); %Monocytes 11.6 % (0.0-10.0); %Neutrophils 64.4 % (40.0-75.0); Hemoglobin 13.9 g/dL (13.5-17.5); Mean Corpuscular HGB CONC 33.5 g/dL (32.0-36.0); Mean Corpuscular Hemoglobin 30.3 pg (27.0-33.0); Mean Corpuscular Volume 90.4 fl (81.2-95.1); Mean Platelet Volume 10.9 fl (7.4-10.4); Platelet Count 136 10x3/uL (150-450); RBC Distribution Width 14.3 % (11.5-14.5); Red Blood Cell (RBC) Count 4.59 10x6/uL (4.32-5.72); White Blood Cell (WBC) Count 6.4 10x3/uL (3.5-10.5)
[2021-07-30 12:59] LABS: Anion Gap 16 mmol/L (10-20); BUN (Urea Nitrogen) 19 mg/dL (8.4-25.7); Calc. Creatinine Clearance 0 mL/min (70-130); Calcium 9.2 mg/dL (7.8-10.44); Carbon Dioxide 25 mmol/L (23-31); Chloride 104 mmol/L (98-107); Glucose 96 mg/dL (83-110); Potassium 4.5 mmol/L (3.5-5.1); Sodium 140 mmol/L (136-145)
[2021-07-30 20:00] LABS: SARS-CoV-2 PCR by NAA Not Detected (NotDetected)
== END 2021-07-30 11:41 | disposition home or self-care (01) ==
LOC: LABBT 11:40
PROVIDERS: ATTEND Orthopaedic Surgery Hand Surgery
DX: Z01.812 Encounter for preprocedural laboratory examination (principal); Z20.822 Contact with and (suspected) exposure to COVID-19
CPT/HCPCS: 80048; 85025; U0003; U0005

== ENCOUNTER 2021-07-31 09:05 | Day surgery (SDC) | payer MEDICARE, OTHER ==
[2021-07-30 09:25] VITALS: BMI 34.8
[2021-07-31] MEDS ORDERED: Bacitracin Zinc Ointment 30 gm TUBE ONE (10:26)
[2021-07-31] MEDS ORDERED: Bupivacaine PF 0.5% 30 ML VIAL ONE (10:26)
[2021-07-31] MEDS ORDERED: Neomycin-Polymyxin 1 ML AMP ONE (10:26)
[2021-07-31] MEDS ORDERED: ceFAZolin (BATCH) 2 GM/100 ML BAG ONE (10:48)
[2021-07-31] MEDS ORDERED: Ketorolac Tromethamine 30 MG/ML VIAL ONE (11:31)
[2021-07-31] MEDS ORDERED: PROPOFOL 200 MG/20 ML VIAL ONE (11:31)
[2021-07-31] MEDS ORDERED: Bupivacaine HCl 0.5%/Epinephrine 1:200,000/PF 30 ml Vial ONE (11:31)
[2021-07-31] MEDS ORDERED: Dexamethasone 20 MG/5 ML VIAL ONE (11:31)
[2021-07-31] MEDS ORDERED: Propofol 500 MG/50 ML VIAL ONE (11:49)
[2021-07-31] MEDS ORDERED: Fentanyl 100 MCG/2 ML VIAL ONE (12:29)
== END 2021-07-31 13:33 | disposition home or self-care (01) ==
LOC: SDC 09:05
PROVIDERS: ATTEND Orthopaedic Surgery Hand Surgery
PROC: 0RSPXZZ Reposition Left Wrist Joint, External Approach (ICD-10-PCS; principal; 2021-07-31)
DX: S63.092A Other subluxation of left wrist and hand, initial encounter (principal); S64.11XA Injury of median nerve at wrist and hand level of right arm, initial encounter; M19.90 Unspecified osteoarthritis, unspecified site; I10 Essential (primary) hypertension; Z87.891 Personal history of nicotine dependence; Z79.1 Long term (current) use of non-steroidal anti-inflammatories (NSAID); Z79.82 Long term (current) use of aspirin; Z79.899 Other long term (current) drug therapy; Z95.1 Presence of aortocoronary bypass graft; V80.010A Animal-rider injured by fall from or being thrown from horse in noncollision accident, initial encounter
CPT/HCPCS: 25690; 73110; 76000; C1713; J0690; J1100; J1885; J2704; J3010; S0020

== ENCOUNTER 2021-09-21 10:16 | Outpatient (CLI) | payer MEDICARE ==
[2021-09-21 11:18] LABS: #Basophils 0.1 10x3/uL (0.0-0.2); #Eosinphils 0.2 10x3/uL (0.0-0.5); #Monocytes 0.8 10x3/uL (0.0-1.1); #Neutrophils 4.9 10x3/uL (1.5-8.4); %Eosinophils 2.3 % (0.0-6.0); %Lymphocytes 18.1 % (18.0-47.0); %Monocytes 11.3 % (0.0-10.0); %Neutrophils 66.9 % (40.0-75.0); Hemoglobin 13.7 g/dL (13.5-17.5); Mean Corpuscular HGB CONC 33.2 g/dL (32.0-36.0); Mean Corpuscular Hemoglobin 29.4 pg (27.0-33.0); Mean Corpuscular Volume 88.6 fl (81.2-95.1); Mean Platelet Volume 8.4 fl (7.4-10.4); Platelet Count 320 10x3/uL (150-450); RBC Distribution Width 12.9 % (11.5-14.5); Red Blood Cell (RBC) Count 4.66 10x6/uL (4.32-5.72); White Blood Cell (WBC) Count 7.3 10x3/uL (3.5-10.5)
[2021-09-21 11:37] LABS: Anion Gap 15 mmol/L (10-20); BUN (Urea Nitrogen) 15 mg/dL (8.4-25.7); Calc. Creatinine Clearance 0 mL/min (70-130); Calcium 9.6 mg/dL (7.8-10.44); Carbon Dioxide 28 mmol/L (23-31); Chloride 101 mmol/L (98-107); Estimated GFR 92; Glucose 93 mg/dL (83-110); Potassium 4.5 mmol/L (3.5-5.1); Sodium 139 mmol/L (136-145)
== END 2021-09-21 10:17 | disposition home or self-care (01) ==
LOC: LABBT 10:16
PROVIDERS: ATTEND Orthopaedic Surgery Hand Surgery
DX: Z01.818 Encounter for other preprocedural examination (principal); T84.84XA Pain due to internal orthopedic prosthetic devices, implants and grafts, initial encounter; Z20.822 Contact with and (suspected) exposure to COVID-19
CPT/HCPCS: 80048; 85025; 87811; 93005; 93010

== ENCOUNTER 2021-09-23 15:15 | Emergency (ER) | payer MEDICARE ==
[2021-09-23 16:40] LABS: #Eosinphils 0.1 thou/uL (0.0-0.7); #Lymphocytes 1.1 thou/uL (1.20-3.40); #Monocytes 0.8 thou/uL (0.11-0.59); #Neutrophils 7.3 thou/uL (1.40-6.50); %Basophils 0.4 % (0.0-1.0); %Eosinophils 1.3 % (0.0-10.0); %Monocytes 8.5 % (0.0-10.0); %Neutrophils 77.8 % (42.0-75.0); Hemoglobin 14.4 g/dL (14.0-18.0); Mean Corpuscular HGB CONC 33.6 g/dL (32.0-36.0); Mean Corpuscular Hemoglobin 31.2 pg (27.0-31.0); Mean Corpuscular Volume 92.8 fL (78.0-98.0); Mean Platelet Volume 6.3 fL (7.4-10.4); Platelet Count 290 thou/uL (130-400); RBC Distribution Width 12.7 % (11.5-14.5); Red Blood Cell (RBC) Count 4.62 mill/uL (4.70-6.10); White Blood Cell (WBC) Count 9.4 thou/uL (4.8-10.8)
[2021-09-23 17:02] LABS: ALT (SGPT) 10 U/L (8-55); AST (SGOT) 11 U/L (5-34); Alkaline Phosphatase 65 U/L (40-110); Anion Gap 14 mmol/L (10-20); BUN (Urea Nitrogen) 16 mg/dL (8.4-25.7); Bilirubin, Total 0.6 mg/dL (0.2-1.2); CK (CPK) 44 U/L (30-200); Calc. Creatinine Clearance 0 mL/min (70-130); Calcium 9.6 mg/dL (7.8-10.44); Carbon Dioxide 25 mmol/L (23-31); Chloride 102 mmol/L (98-107); Estimated GFR 92; Globulin 3.7 g/dL (2.4-3.5); Glucose 101 mg/dL (83-110); Magnesium 2.4 mg/dL (1.6-2.6); Potassium 4.3 mmol/L (3.5-5.1); Protein, Total 7.7 g/dL (5.8-8.1); Sodium 137 mmol/L (136-145)
[2021-09-23] MEDS ORDERED: Diazepam 5 MG TAB ONE (17:42)
== END 2021-09-23 19:05 | disposition home or self-care (01) ==
LOC: ERS 15:15
DX: M62.838 Other muscle spasm (principal); I45.4 Nonspecific intraventricular block; I10 Essential (primary) hypertension; Z87.891 Personal history of nicotine dependence; Z79.82 Long term (current) use of aspirin; Z79.899 Other long term (current) drug therapy
CPT/HCPCS: 36415; 80053; 82550; 83735; 84484; 85025; 93005

== ENCOUNTER 2021-09-25 11:40 | Inpatient (IN) | payer MEDICARE, OTHER ==
[2021-09-20 14:10] VITALS: BMI 34.8
[~2021-09-25 11:40] MED LIST: Heparin 1,000 UNITS/ML VIAL ONE
[2021-09-25] MEDS ORDERED: Fentanyl 100 MCG/2 ML VIAL ONE ×2 (12:42→18:40)
[2021-09-25] MEDS ORDERED: Midazolam HCl 2 mg/2 ml Vial ONE ×2 (12:42→14:08)
[2021-09-25] MEDS ORDERED: fentaNYL Citrate/PF 100 MCG/2 ML SYRINGE ONE (14:11)
[2021-09-25] MEDS ORDERED: Bupivacaine PF 0.5% 30 ML VIAL ONE (14:49)
[2021-09-25] MEDS ORDERED: Bacitracin Zinc Ointment 30 gm TUBE ONE (14:49)
[2021-09-25] MEDS ORDERED: Sodium Chloride 0.9% 100 ML ONE (14:56)
[2021-09-25] MEDS ORDERED: CEFAZOLIN 2 GM VIAL ONE (14:56)
[2021-09-25] MEDS ORDERED: Ondansetron PF 4 MG/2 ML Vial ONE (15:11)
[2021-09-25] MEDS ORDERED: Lidocaine 1% PF 5 ML VIAL ONE (15:11)
[2021-09-25] MEDS ORDERED: PHENYLEPHRINE-NS 100 MCG/ML 10 ML SYRINGE ONE (15:11)
[2021-09-25] MEDS ORDERED: Bupivacaine HCl 0.5%/Epinephrine 1:200,000/PF 30 ml Vial ONE (15:11)
[2021-09-25] MEDS ORDERED: PROPOFOL 200 MG/20 ML VIAL ONE (15:11)
[2021-09-25] MEDS ORDERED: ePHEDrine 50 MG/ML VIAL ONE (15:11)
[2021-09-25] MEDS ORDERED: Dexamethasone 20 MG/5 ML VIAL ONE (15:11)
[2021-09-25] MEDS ORDERED: Neomycin-Polymyxin 1 ML AMP ONE (15:56)
[2021-09-25] MEDS ORDERED: Tobramycin Sulfate 1.2 GM VIAL ONE (16:10)
[2021-09-25] MEDS ORDERED: Fentanyl 100 MCG/2 ML VIAL SLOW IVP PRN (17:36)
[2021-09-25] MEDS ORDERED: traMADol HCl 50 MG TAB PO PRN (17:36)
[2021-09-25] MEDS ORDERED: Promethazine HCl 25 MG/ML VIAL IM PRN (17:36)
[2021-09-25] MEDS ORDERED: Acetaminophen 325 MG TAB PO PRN (17:36)
[2021-09-25] MEDS ORDERED: Milk Of Magnesia 30 ML UDCUP PO PRN (17:36)
[2021-09-25] MEDS ORDERED: Ondansetron PF 4 MG/2 ML Vial IVP PRN (17:36)
[2021-09-25] MEDS ORDERED: Meperidine HCl/PF 25 MG/ML VIAL IM PRN (17:39)
[2021-09-25] MEDS ORDERED: TETANUS AND DIPHTHERIA TOX/PF 0.5 ML DISP.SYRIN IM SCH (17:45)
[2021-09-25] MEDS: Vancomycin 1.5 GM in Premix Bag 1 BAG IVPB SCH (21:14)
[2021-09-25] MEDS: Aspirin 81 mg Enteric Coated Tablet PO SCH (21:14)
[2021-09-25] MEDS: Metoprolol Tartrate 25 MG TAB PO SCH (21:15)
[2021-09-25] MEDS: Oxybutynin 5 MG TAB PO SCH (21:15)
[2021-09-25] MEDS: Simvastatin 10 MG TAB PO SCH (21:15)
[2021-09-25] MEDS: Sodium Chloride 0.9% 100 ML IV SCH (21:16)
[2021-09-25] MEDS: HYDROcodone/Acetaminophen 5/325 mg Tablet PO PRN (21:21)
[2021-09-26] MEDS: Sodium Chloride 0.9% 100 ML IV SCH ×4 (01:48→06:39)
[2021-09-26 06:38] LABS: #Lymphocytes 0.7 thou/uL (1.20-3.40); #Monocytes 0.5 thou/uL (0.11-0.59); #Neutrophils 7.9 thou/uL (1.40-6.50); %Basophils 0.1 % (0.0-1.0); %Eosinophils 0.1 % (0.0-10.0); %Monocytes 5.9 % (0.0-10.0); %Neutrophils 85.9 % (42.0-75.0); Hemoglobin 12.6 g/dL (14.0-18.0); Mean Corpuscular HGB CONC 33.9 g/dL (32.0-36.0); Mean Corpuscular Hemoglobin 31.2 pg (27.0-31.0); Mean Platelet Volume 6.4 fL (7.4-10.4); Platelet Count 275 thou/uL (130-400); RBC Distribution Width 12.7 % (11.5-14.5); Red Blood Cell (RBC) Count 4.03 mill/uL (4.70-6.10); White Blood Cell (WBC) Count 9.2 thou/uL (4.8-10.8)
[2021-09-26] MEDS ORDERED: HYDROcodone/Acetaminophen 5/325 mg Tablet PO PRN (06:57)
[2021-09-26 07:17] LABS: ALT (SGPT) 9 U/L (8-55); AST (SGOT) 9 U/L (5-34); Albumin 3.4 g/dL (3.4-4.8); Alkaline Phosphatase 53 U/L (40-110); Anion Gap 12 mmol/L (10-20); BUN (Urea Nitrogen) 20 mg/dL (8.4-25.7); Bilirubin, Total 0.8 mg/dL (0.2-1.2); Calc. Creatinine Clearance 123 mL/min (70-130); Calcium 8.9 mg/dL (7.8-10.44); Carbon Dioxide 26 mmol/L (23-31); Chloride 104 mmol/L (98-107); Estimated GFR 91; Globulin 3.2 g/dL (2.4-3.5); Glucose 123 mg/dL (83-110); Potassium 4.6 mmol/L (3.5-5.1); Protein, Total 6.6 g/dL (5.8-8.1); Sodium 137 mmol/L (136-145)
[2021-09-26] MEDS: Vancomycin 1.5 GM in Premix Bag 1 BAG IVPB SCH (08:42)
[2021-09-26] MEDS: Metoprolol Tartrate 25 MG TAB PO SCH ×2 (08:42→20:37)
[2021-09-26] MEDS: HYDROcodone/Acetaminophen 5/325 mg Tablet PO PRN ×3 (08:43→20:37)
[2021-09-26] MEDS: Meloxicam 15 MG TAB PO SCH (08:43)
[2021-09-26] MEDS: Aspirin 81 mg Enteric Coated Tablet PO SCH ×2 (08:43→20:37)
[2021-09-26] MEDS: Amlodipine 10 MG TAB PO SCH (08:43)
[2021-09-26] MEDS: FLUoxetine HCl 20 MG CAP PO SCH (08:43)
[2021-09-26] MEDS: Polyethylene Glycol 3350 17 GM Packet PO SCH (08:44)
[2021-09-26] MEDS: Ezetimibe 10 MG TAB PO SCH (08:44)
[2021-09-26] MEDS: Morphine 4 MG/ML VIAL SLOW IVP PRN (11:22)
[2021-09-26] MEDS: Simvastatin 10 MG TAB PO SCH (20:36)
[2021-09-26] MEDS: Oxybutynin 5 MG TAB PO SCH (20:37)
[2021-09-26] MEDS ORDERED: Vancomycin 1.5 GRAM/300 ML BAG 1.5 GM in Premix Bag 1 BAG IVPB SCH (21:00)
[2021-09-27] MEDS: HYDROcodone/Acetaminophen 5/325 mg Tablet PO PRN ×3 (05:11→20:30)
[2021-09-27] MEDS: Amlodipine 10 MG TAB PO SCH (08:27)
[2021-09-27] MEDS: Aspirin 81 mg Enteric Coated Tablet PO SCH ×2 (08:27→20:29)
[2021-09-27] MEDS: FLUoxetine HCl 20 MG CAP PO SCH (08:28)
[2021-09-27] MEDS: Metoprolol Tartrate 25 MG TAB PO SCH (08:28)
[2021-09-27] MEDS: Ezetimibe 10 MG TAB PO SCH (08:28)
[2021-09-27] MEDS: Meloxicam 15 MG TAB PO SCH (08:28)
[2021-09-27] MEDS: Polyethylene Glycol 3350 17 GM Packet PO SCH (08:29)
[2021-09-27] MEDS: VANCOMYCIN 1.75 GM/500 ML BAG 1.75 GM in Premix Bag 1 BAG IVPB SCH ×2 (09:40→20:29)
[2021-09-27] MEDS: Oxybutynin 5 MG TAB PO SCH (20:29)
[2021-09-27] MEDS: Famotidine 20 MG TAB PO SCH (20:29)
[2021-09-27] MEDS: Simvastatin 10 MG TAB PO SCH (20:31)
[2021-09-28] MEDS: HYDROcodone/Acetaminophen 5/325 mg Tablet PO PRN (00:41)
[2021-09-28 04:10] LABS: SARS-CoV-2 NAA Rapid Test DETECTED (NotDetected)
[2021-09-28 05:27] LABS: Band 10 % (5-11); Hemoglobin 8.6 g/dL (14.0-18.0); Hypochromia SLIGHT = 6-15 cells (100X) (0-5/hpf); Lymphocytes 24 % (21-51); MDiff Complete? YES; Mean Corpuscular HGB CONC 31.4 g/dL (32.0-36.0); Mean Corpuscular Hemoglobin 30.9 pg (27.0-31.0); Mean Corpuscular Volume 98.2 fL (78.0-98.0); Mean Platelet Volume 6.3 fL (7.4-10.4); Monocytes 9 % (0-10); Neutrophil 57 % (42-75); Platelet Count 119 thou/uL (130-400); Platelet Morphology Comment Appears Decreased; RBC Distribution Width 18.9 % (11.5-14.5); Red Blood Cell (RBC) Count 2.79 mill/uL (4.70-6.10); White Blood Cell (WBC) Count 4.2 thou/uL (4.8-10.8)
[2021-09-28 06:02] LABS: ALT (SGPT) 7 U/L (8-55); AST (SGOT) 14 U/L (5-34); Albumin 2.3 g/dL (3.4-4.8); Alkaline Phosphatase 60 U/L (40-110); Anion Gap 12 mmol/L (10-20); BUN (Urea Nitrogen) 18 mg/dL (8.4-25.7); Bilirubin, Total 0.9 mg/dL (0.2-1.2); Calc. Creatinine Clearance 82 mL/min (70-130); Calcium 8.5 mg/dL (7.8-10.44); Carbon Dioxide 27 mmol/L (23-31); Chloride 96 mmol/L (98-107); Estimated GFR 61; Globulin 2.9 g/dL (2.4-3.5); Glucose 97 mg/dL (83-110); Potassium 4.1 mmol/L (3.5-5.1); Protein, Total 5.2 g/dL (5.8-8.1); Sodium 131 mmol/L (136-145)
[2021-09-28] MEDS: Polyethylene Glycol 3350 17 GM Packet PO SCH (09:54)
[2021-09-28] MEDS: Ezetimibe 10 MG TAB PO SCH (09:54)
[2021-09-28] MEDS: Famotidine 20 MG TAB PO SCH ×2 (09:54→21:32)
[2021-09-28] MEDS: FLUoxetine HCl 20 MG CAP PO SCH (09:54)
[2021-09-28] MEDS: Aspirin 81 mg Enteric Coated Tablet PO SCH ×2 (09:54→21:32)
[2021-09-28] MEDS: Meloxicam 15 MG TAB PO SCH (09:54)
[2021-09-28] MEDS: VANCOMYCIN 1.75 GM/500 ML BAG 1.75 GM in Premix Bag 1 BAG IVPB SCH ×2 (09:56→21:33)
[2021-09-28] MEDS: Amlodipine 10 MG TAB PO SCH (10:06)
[2021-09-28] MEDS: Morphine 4 MG/ML VIAL SLOW IVP PRN (13:52)
[2021-09-28] MEDS ORDERED: fentaNYL Citrate/PF 100 MCG/2 ML SYRINGE ONE (15:46)
[2021-09-28] MEDS ORDERED: Bacitracin Zinc Ointment 30 gm TUBE ONE (16:00)
[2021-09-28] MEDS ORDERED: Bupivacaine PF 0.5% 30 ML VIAL ONE (16:00)
[2021-09-28] MEDS ORDERED: Neomycin-Polymyxin 1 ML AMP ONE (16:00)
[2021-09-28] MEDS ORDERED: Ondansetron PF 4 MG/2 ML Vial ONE (16:22)
[2021-09-28] MEDS ORDERED: PROPOFOL 200 MG/20 ML VIAL ONE (16:22)
[2021-09-28] MEDS ORDERED: ePHEDrine 50 MG/ML VIAL ONE (16:22)
[2021-09-28] MEDS ORDERED: Dexamethasone 20 MG/5 ML VIAL ONE (16:22)
[2021-09-28] MEDS ORDERED: Metoclopramide HCl 10 MG/2 ML VIAL ONE (16:22)
[2021-09-28] MEDS ORDERED: Lidocaine 1% PF 5 ML VIAL ONE (16:22)
[2021-09-28] MEDS ORDERED: Famotidine/PF 20 mg/2ml Vial ONE (16:29)
[2021-09-28] MEDS ORDERED: Tobramycin 80 MG/2 ML VIAL ONE (17:25)
[2021-09-28] MEDS ORDERED: Tobramycin Sulfate 1.2 GM VIAL ONE ×2 (17:25→17:36)
[2021-09-28] MEDS ORDERED: Mineral Oil Sterile 10 ML VIAL ONE (18:24)
[2021-09-28] MEDS ORDERED: Promethazine HCl 25 MG/ML VIAL IVPB PRN (19:01)
[2021-09-28] MEDS ORDERED: Morphine Sulfate 2 MG/ML SYRINGE SLOW IVP PRN (19:01)
[2021-09-28] MEDS ORDERED: Promethazine HCl 25 MG/ML VIAL IM PRN (19:01)
[2021-09-28] MEDS ORDERED: HYDROmorphone 2 MG/ML VIAL SLOW IVP PRN (19:01)
[2021-09-28] MEDS ORDERED: Ondansetron HCl/PF 4 MG/2 ML Vial IVP PRN (19:01)
[2021-09-28] MEDS ORDERED: Fentanyl 100 MCG/2 ML VIAL ONE (19:22)
[2021-09-28 20:28] LABS: Vancomycin, Trough 18.6 ug/mL
[2021-09-28] MEDS: Oxybutynin 5 MG TAB PO SCH (21:32)
[2021-09-28] MEDS: NIRMATRELVIR 150 MG/RITONAVIR 100 MG TABLET PO SCH (21:33)
[2021-09-28] MEDS: traMADol HCl 50 MG TAB PO PRN (21:34)
[2021-09-29] MEDS: traMADol HCl 50 MG TAB PO PRN (05:49)
[2021-09-29 06:16] LABS: #Lymphocytes 0.5 thou/uL (1.20-3.40); #Monocytes 0.4 thou/uL (0.11-0.59); #Neutrophils 3.9 thou/uL (1.40-6.50); %Lymphocytes 9.4 % (21.0-51.0); %Monocytes 9.1 % (0.0-10.0); %Neutrophils 81.4 % (42.0-75.0); Hemoglobin 11.7 g/dL (14.0-18.0); Mean Corpuscular HGB CONC 32.4 g/dL (32.0-36.0); Mean Corpuscular Hemoglobin 30.2 pg (27.0-31.0); Mean Corpuscular Volume 93.3 fL (78.0-98.0); Mean Platelet Volume 6.5 fL (7.4-10.4); Platelet Count 199 thou/uL (130-400); RBC Distribution Width 12.8 % (11.5-14.5); Red Blood Cell (RBC) Count 3.89 mill/uL (4.70-6.10); White Blood Cell (WBC) Count 4.8 thou/uL (4.8-10.8)
[2021-09-29] MEDS: VANCOMYCIN 1.75 GM/500 ML BAG 1.75 GM in Premix Bag 1 BAG IVPB SCH ×2 (09:04→21:36)
[2021-09-29] MEDS: NIRMATRELVIR 150 MG/RITONAVIR 100 MG TABLET PO SCH ×2 (09:04→21:35)
[2021-09-29] MEDS: Aspirin 81 mg Enteric Coated Tablet PO SCH ×2 (09:04→21:35)
[2021-09-29] MEDS: Amlodipine 10 MG TAB PO SCH (09:05)
[2021-09-29] MEDS: Ezetimibe 10 MG TAB PO SCH (09:05)
[2021-09-29] MEDS: Meloxicam 15 MG TAB PO SCH (09:05)
[2021-09-29] MEDS: FLUoxetine HCl 20 MG CAP PO SCH (09:06)
[2021-09-29] MEDS: Famotidine 20 MG TAB PO SCH ×2 (09:06→21:35)
[2021-09-29] MEDS: Polyethylene Glycol 3350 17 GM Packet PO SCH (10:59)
[2021-09-29] MEDS: HYDROcodone/Acetaminophen 7.5/325 mg Tablet PO PRN (17:47)
[2021-09-29] MEDS: Oxybutynin 5 MG TAB PO SCH (21:35)
[2021-09-30] MEDS: HYDROcodone/Acetaminophen 7.5/325 mg Tablet PO PRN ×4 (00:24→20:49)
[2021-09-30] MEDS: Aspirin 81 mg Enteric Coated Tablet PO SCH ×2 (08:16→20:49)
[2021-09-30] MEDS: Ezetimibe 10 MG TAB PO SCH (08:16)
[2021-09-30] MEDS: NIRMATRELVIR 150 MG/RITONAVIR 100 MG TABLET PO SCH ×2 (08:16→20:51)
[2021-09-30] MEDS: Famotidine 20 MG TAB PO SCH ×2 (08:17→20:49)
[2021-09-30] MEDS: FLUoxetine HCl 20 MG CAP PO SCH (08:17)
[2021-09-30] MEDS: Amlodipine 10 MG TAB PO SCH (08:17)
[2021-09-30] MEDS: Meloxicam 15 MG TAB PO SCH (08:18)
[2021-09-30] MEDS: Metoprolol Tartrate 25 MG TAB PO SCH ×2 (08:18→20:50)
[2021-09-30] MEDS: Polyethylene Glycol 3350 17 GM Packet PO SCH (08:20)
[2021-09-30 08:29] LABS: Vancomycin, Trough 17.9 ug/mL
[2021-09-30] MEDS: VANCOMYCIN 1.75 GM/500 ML BAG 1.75 GM in Premix Bag 1 BAG IVPB SCH ×2 (10:24→20:52)
[2021-09-30] MEDS: Oxybutynin 5 MG TAB PO SCH (18:45)
[2021-10-01 07:04] LABS: ALT (SGPT) 20 U/L (8-55); AST (SGOT) 12 U/L (5-34); Albumin 3.5 g/dL (3.4-4.8); Alkaline Phosphatase 58 U/L (40-110); Anion Gap 11 mmol/L (10-20); BUN (Urea Nitrogen) 15 mg/dL (8.4-25.7); Bilirubin, Total 0.6 mg/dL (0.2-1.2); Calc. Creatinine Clearance 144 mL/min (70-130); Calcium 9.1 mg/dL (7.8-10.44); Carbon Dioxide 29 mmol/L (23-31); Chloride 103 mmol/L (98-107); Estimated GFR 95; Globulin 3.2 g/dL (2.4-3.5); Glucose 88 mg/dL (83-110); Potassium 4.1 mmol/L (3.5-5.1); Protein, Total 6.7 g/dL (5.8-8.1); Sodium 139 mmol/L (136-145)
[2021-10-01] MEDS: NIRMATRELVIR 150 MG/RITONAVIR 100 MG TABLET PO SCH ×2 (08:22→20:55)
[2021-10-01] MEDS: FLUoxetine HCl 20 MG CAP PO SCH (08:23)
[2021-10-01] MEDS: Aspirin 81 mg Enteric Coated Tablet PO SCH ×2 (08:23→20:56)
[2021-10-01] MEDS: Famotidine 20 MG TAB PO SCH ×2 (08:23→20:56)
[2021-10-01] MEDS: Amlodipine 10 MG TAB PO SCH (08:23)
[2021-10-01] MEDS: Meloxicam 15 MG TAB PO SCH (08:23)
[2021-10-01] MEDS: Ezetimibe 10 MG TAB PO SCH (08:23)
[2021-10-01] MEDS: Polyethylene Glycol 3350 17 GM Packet PO SCH (08:25)
[2021-10-01] MEDS: Metoprolol Tartrate 25 MG TAB PO SCH (08:26)
[2021-10-01] MEDS: HYDROcodone/Acetaminophen 7.5/325 mg Tablet PO PRN ×3 (11:17→22:40)
[2021-10-01] MEDS: VANCOMYCIN 1.75 GM/500 ML BAG 1.75 GM in Premix Bag 1 BAG IVPB SCH ×2 (11:17→22:40)
[2021-10-01] MEDS: Oxybutynin 5 MG TAB PO SCH (20:55)
[2021-10-02 06:25] LABS: #Eosinphils 0.2 thou/uL (0.0-0.7); #Lymphocytes 1.3 thou/uL (1.20-3.40); #Monocytes 0.7 thou/uL (0.11-0.59); #Neutrophils 3.3 thou/uL (1.40-6.50); %Basophils 0.4 % (0.0-1.0); %Lymphocytes 23.5 % (21.0-51.0); %Neutrophils 59.1 % (42.0-75.0); Hemoglobin 12.5 g/dL (14.0-18.0); Mean Corpuscular HGB CONC 32.2 g/dL (32.0-36.0); Mean Corpuscular Hemoglobin 29.8 pg (27.0-31.0); Mean Corpuscular Volume 92.5 fL (78.0-98.0); Platelet Count 203 thou/uL (130-400); RBC Distribution Width 13.2 % (11.5-14.5); Red Blood Cell (RBC) Count 4.21 mill/uL (4.70-6.10); White Blood Cell (WBC) Count 5.6 thou/uL (4.8-10.8)
[2021-10-02 06:47] LABS: Anion Gap 13 mmol/L (10-20); BUN (Urea Nitrogen) 14 mg/dL (8.4-25.7); Calc. Creatinine Clearance 146 mL/min (70-130); Calcium 8.9 mg/dL (7.8-10.44); Carbon Dioxide 28 mmol/L (23-31); Chloride 103 mmol/L (98-107); Estimated GFR 96; Glucose 86 mg/dL (83-110); Potassium 3.7 mmol/L (3.5-5.1); Sodium 140 mmol/L (136-145)
[2021-10-02] MEDS: Amlodipine 10 MG TAB PO SCH (09:56)
[2021-10-02] MEDS: Ezetimibe 10 MG TAB PO SCH (09:56)
[2021-10-02] MEDS: Aspirin 81 mg Enteric Coated Tablet PO SCH ×2 (09:58→21:10)
[2021-10-02] MEDS: Meloxicam 15 MG TAB PO SCH (09:59)
[2021-10-02] MEDS: Famotidine 20 MG TAB PO SCH (09:59)
[2021-10-02] MEDS: FLUoxetine HCl 20 MG CAP PO SCH (09:59)
[2021-10-02] MEDS: NIRMATRELVIR 150 MG/RITONAVIR 100 MG TABLET PO SCH ×2 (10:01→21:12)
[2021-10-02] MEDS: Polyethylene Glycol 3350 17 GM Packet PO SCH (10:03)
[2021-10-02] MEDS: VANCOMYCIN 1.75 GM/500 ML BAG 1.75 GM in Premix Bag 1 BAG IVPB SCH ×2 (10:03→23:05)
[2021-10-02] MEDS: HYDROcodone/Acetaminophen 7.5/325 mg Tablet PO PRN ×2 (10:17→21:09)
[2021-10-02] MEDS: Oxybutynin 5 MG TAB PO SCH (21:10)
[2021-10-02] MEDS ORDERED: hydrOXYzine 10 MG/5 ML UDCUP PO SCH (21:45)
[2021-10-03 01:16] LABS: SARS-CoV-2 NAA Rapid Test DETECTED (NotDetected)
[2021-10-03] MEDS: Amlodipine 10 MG TAB PO SCH (09:13)
[2021-10-03] MEDS: Aspirin 81 mg Enteric Coated Tablet PO SCH ×2 (09:14→22:10)
[2021-10-03] MEDS: Ezetimibe 10 MG TAB PO SCH (09:15)
[2021-10-03] MEDS: Meloxicam 15 MG TAB PO SCH (09:16)
[2021-10-03] MEDS: FLUoxetine HCl 20 MG CAP PO SCH (09:16)
[2021-10-03] MEDS: NIRMATRELVIR 150 MG/RITONAVIR 100 MG TABLET PO SCH (09:17)
[2021-10-03] MEDS: VANCOMYCIN 1.75 GM/500 ML BAG 1.75 GM in Premix Bag 1 BAG IVPB SCH ×2 (09:18→22:13)
[2021-10-03] MEDS: Polyethylene Glycol 3350 17 GM Packet PO SCH (09:18)
[2021-10-03] MEDS: HYDROcodone/Acetaminophen 7.5/325 mg Tablet PO PRN ×3 (09:23→22:09)
[2021-10-03 21:21] LABS: Vancomycin, Trough 22.1 ug/mL
[2021-10-03] MEDS: Metoprolol Tartrate 25 MG TAB PO SCH (22:12)
[2021-10-03] MEDS: Oxybutynin 5 MG TAB PO SCH (22:13)
[2021-10-04] MEDS: Ezetimibe 10 MG TAB PO SCH (10:20)
[2021-10-04] MEDS: FLUoxetine HCl 20 MG CAP PO SCH (10:20)
[2021-10-04] MEDS: Metoprolol Tartrate 25 MG TAB PO SCH ×2 (10:20→21:02)
[2021-10-04] MEDS: Amlodipine 10 MG TAB PO SCH (10:20)
[2021-10-04] MEDS: Polyethylene Glycol 3350 17 GM Packet PO SCH (10:21)
[2021-10-04] MEDS: Meloxicam 15 MG TAB PO SCH (10:21)
[2021-10-04] MEDS: VANCOMYCIN 1.75 GM/500 ML BAG 1.75 GM in Premix Bag 1 BAG IVPB SCH ×2 (10:21→21:01)
[2021-10-04] MEDS: Aspirin 81 mg Enteric Coated Tablet PO SCH ×2 (10:21→21:02)
[2021-10-04] MEDS: HYDROcodone/Acetaminophen 7.5/325 mg Tablet PO PRN ×2 (15:30→21:01)
[2021-10-04] MEDS: Oxybutynin 5 MG TAB PO SCH (21:02)
[2021-10-05 08:39] LABS: Vancomycin, Trough 26.3 ug/mL
[2021-10-05] MEDS: Aspirin 81 mg Enteric Coated Tablet PO SCH ×2 (09:24→21:07)
[2021-10-05] MEDS: Meloxicam 15 MG TAB PO SCH (09:24)
[2021-10-05] MEDS: Ezetimibe 10 MG TAB PO SCH (09:24)
[2021-10-05] MEDS: Amlodipine 10 MG TAB PO SCH (09:25)
[2021-10-05] MEDS: FLUoxetine HCl 20 MG CAP PO SCH (09:25)
[2021-10-05] MEDS: VANCOMYCIN 1.75 GM/500 ML BAG 1.75 GM in Premix Bag 1 BAG IVPB SCH ×2 (09:26→09:44)
[2021-10-05] MEDS: Metoprolol Tartrate 25 MG TAB PO SCH ×2 (09:28→21:07)
[2021-10-05] MEDS: Polyethylene Glycol 3350 17 GM Packet PO SCH (09:28)
[2021-10-05] MEDS: HYDROcodone/Acetaminophen 7.5/325 mg Tablet PO PRN ×2 (09:31→21:07)
[2021-10-05] MEDS: Oxybutynin 5 MG TAB PO SCH (21:07)
[2021-10-05] MEDS: VANCOMYCIN 1.25 GM/250 ML BAG 1.25 GM in Premix Bag 1 BAG IVPB SCH (21:08)
[2021-10-06] MEDS: Polyethylene Glycol 3350 17 GM Packet PO SCH (10:17)
[2021-10-06] MEDS: Meloxicam 15 MG TAB PO SCH (10:18)
[2021-10-06] MEDS: Amlodipine 10 MG TAB PO SCH (10:18)
[2021-10-06] MEDS: FLUoxetine HCl 20 MG CAP PO SCH (10:18)
[2021-10-06] MEDS: Aspirin 81 mg Enteric Coated Tablet PO SCH ×2 (10:18→21:04)
[2021-10-06] MEDS: VANCOMYCIN 1.25 GM/250 ML BAG 1.25 GM in Premix Bag 1 BAG IVPB SCH ×2 (10:19→21:07)
[2021-10-06] MEDS: Ezetimibe 10 MG TAB PO SCH (10:19)
[2021-10-06] MEDS: Metoprolol Tartrate 25 MG TAB PO SCH ×2 (10:20→21:04)
[2021-10-06 10:37] LABS: ALT (SGPT) 28 U/L (8-55); AST (SGOT) 16 U/L (5-34); Albumin 3.3 g/dL (3.4-4.8); Alkaline Phosphatase 62 U/L (40-110); Bilirubin, Direct 0.4 mg/dL (0.1-0.3); Bilirubin, Total 0.9 mg/dL (0.2-1.2); Protein, Total 6.6 g/dL (5.8-8.1)
[2021-10-06 11:12] LABS: Anion Gap 15 mmol/L (10-20); BUN (Urea Nitrogen) 18 mg/dL (8.4-25.7); Calc. Creatinine Clearance 131 mL/min (70-130); Calcium 9.2 mg/dL (7.8-10.44); Carbon Dioxide 24 mmol/L (23-31); Chloride 103 mmol/L (98-107); Estimated GFR 93; Glucose 124 mg/dL (83-110); Lipase 7 U/L (8-78); Potassium 4.1 mmol/L (3.5-5.1); Sodium 138 mmol/L (136-145)
[2021-10-06] MEDS: HYDROcodone/Acetaminophen 7.5/325 mg Tablet PO PRN ×2 (15:40→21:04)
[2021-10-06] MEDS: Oxybutynin 5 MG TAB PO SCH (21:04)
[2021-10-07] MEDS: HYDROcodone/Acetaminophen 7.5/325 mg Tablet PO PRN ×2 (01:32→17:44)
[2021-10-07 08:28] LABS: Vancomycin, Trough 26.6 ug/mL
[2021-10-07] MEDS: VANCOMYCIN 1.25 GM/250 ML BAG 1.25 GM in Premix Bag 1 BAG IVPB SCH (08:42)
[2021-10-07] MEDS: Amlodipine 10 MG TAB PO SCH (09:18)
[2021-10-07] MEDS: Aspirin 81 mg Enteric Coated Tablet PO SCH ×2 (09:18→20:44)
[2021-10-07] MEDS: Meloxicam 15 MG TAB PO SCH (09:18)
[2021-10-07] MEDS: Metoprolol Tartrate 25 MG TAB PO SCH ×2 (09:19→20:45)
[2021-10-07] MEDS: Ezetimibe 10 MG TAB PO SCH (09:19)
[2021-10-07] MEDS: FLUoxetine HCl 20 MG CAP PO SCH (09:20)
[2021-10-07] MEDS: Polyethylene Glycol 3350 17 GM Packet PO SCH (09:25)
[2021-10-07] MEDS ORDERED: Fleet Enema 133 ML BOT FS SCH (19:00)
[2021-10-07] MEDS ORDERED: Fleet Enema 133 ML BOT FS PRN (19:18)
[2021-10-07 20:14] LABS: Vancomycin, Random 22.2 ug/mL (See Comment)
[2021-10-07] MEDS: Oxybutynin 5 MG TAB PO SCH (20:45)
[2021-10-08 08:40] LABS: Vancomycin, Random 16.6 ug/mL (See Comment)
[2021-10-08] MEDS: Aspirin 81 mg Enteric Coated Tablet PO SCH ×2 (09:39→20:55)
[2021-10-08] MEDS: Amlodipine 10 MG TAB PO SCH (09:39)
[2021-10-08] MEDS: Ezetimibe 10 MG TAB PO SCH (09:39)
[2021-10-08] MEDS: Meloxicam 15 MG TAB PO SCH (09:39)
[2021-10-08] MEDS: FLUoxetine HCl 20 MG CAP PO SCH (09:39)
[2021-10-08] MEDS: Metoprolol Tartrate 25 MG TAB PO SCH ×2 (09:40→20:55)
[2021-10-08] MEDS: Polyethylene Glycol 3350 17 GM Packet PO SCH (09:40)
[2021-10-08] MEDS: Vancomycin 1 GM in Premix Bag 1 BAG IVPB SCH ×2 (09:40→20:56)
[2021-10-08] MEDS: Oxybutynin 5 MG TAB PO SCH (20:55)
[2021-10-08] MEDS: HYDROcodone/Acetaminophen 7.5/325 mg Tablet PO PRN (20:55)
[2021-10-09] MEDS: Amlodipine 10 MG TAB PO SCH (09:00)
[2021-10-09] MEDS: Aspirin 81 mg Enteric Coated Tablet PO SCH (09:00)
[2021-10-09] MEDS: FLUoxetine HCl 20 MG CAP PO SCH (09:00)
[2021-10-09] MEDS: Vancomycin 1 GM in Premix Bag 1 BAG IVPB SCH (09:00)
[2021-10-09] MEDS: Meloxicam 15 MG TAB PO SCH (09:00)
[2021-10-09] MEDS: Ezetimibe 10 MG TAB PO SCH (09:00)
[2021-10-09] MEDS: Metoprolol Tartrate 25 MG TAB PO SCH (09:00)
[2021-10-09] MEDS: Polyethylene Glycol 3350 17 GM Packet PO SCH (09:03)
[2021-10-09 15:59] VITALS: BP 136/78; TEMP 98.2
== END 2021-10-09 15:45 | DRG 506 ==
LOC: SDC 11:40 → SURG A 17:36
PROVIDERS: ADMIT Orthopaedic Surgery Hand Surgery; ATTEND Internal Medicine
PROC: 0RPP04Z Removal of Internal Fixation Device from Left Wrist Joint, Open Approach (ICD-10-PCS; principal; 2021-09-25)
PROC: 3E0U029 Introduction of Other Anti-infective into Joints, Open Approach (ICD-10-PCS; 2021-09-25)
PROC: 8E0ZXY6 Isolation (ICD-10-PCS; 2021-09-27)
PROC: 02HV33Z Insertion of Infusion Device into Superior Vena Cava, Percutaneous Approach (ICD-10-PCS; 2021-09-27)
PROC: B548ZZA Ultrasonography of Superior Vena Cava, Guidance (ICD-10-PCS; 2021-09-27)
PROC: 0PBJ0ZZ Excision of Left Radius, Open Approach (ICD-10-PCS; 2021-09-28)
PROC: 3E0U029 Introduction of Other Anti-infective into Joints, Open Approach (ICD-10-PCS; 2021-09-28)
DX: T84.84XA Pain due to internal orthopedic prosthetic devices, implants and grafts, initial encounter (principal); U07.1 COVID-19; L02.414 Cutaneous abscess of left upper limb; M86.8X3 Other osteomyelitis, forearm; I25.810 Atherosclerosis of coronary artery bypass graft(s) without angina pectoris; M00.9 Pyogenic arthritis, unspecified; E87.1 Hypo-osmolality and hyponatremia; Y84.8 Other medical procedures as the cause of abnormal reaction of the patient, or of later complication, without mention of misadventure at the time of the procedure; I10 Essential (primary) hypertension; I48.91 Unspecified atrial fibrillation; M19.90 Unspecified osteoarthritis, unspecified site; E78.2 Mixed hyperlipidemia; N40.0 Benign prostatic hyperplasia without lower urinary tract symptoms; Z96.651 Presence of right artificial knee joint; B95.62 Methicillin resistant Staphylococcus aureus infection as the cause of diseases classified elsewhere; T84.613A Infection and inflammatory reaction due to internal fixation device of left radius, initial encounter; Z79.899 Other long term (current) drug therapy; Z95.1 Presence of aortocoronary bypass graft; Z79.82 Long term (current) use of aspirin; M62.838 Other muscle spasm; I45.4 Nonspecific intraventricular block; Z87.891 Personal history of nicotine dependence
CPT/HCPCS: 36415; 36569; 74018; 76000; 80048; 80053; 80076; 80202; 82150; 82550; 82565; 83690; 83735; 84484; 85025; 87070; 87077; 87186; 87205; 90714; 93005; 97139; C1713; C1751; C9363-KX-JC; J0690; J1100; J1644; J2250; J2270; J2405; J2704; J2765; J3010; J3260; J3370; J3490; J7050; S0020; S0028; U0002; U0003; U0005

== ENCOUNTER 2021-10-26 09:19 | Day surgery (SDC) | payer OTHER ==
[2021-10-23 16:34] VITALS: BMI 33.0
[2021-10-26] MEDS ORDERED: fentaNYL Citrate/PF 100 MCG/2 ML SYRINGE ONE (11:11)
[2021-10-26] MEDS ORDERED: Bacitracin Zinc Ointment 30 gm TUBE ONE (11:12)
[2021-10-26] MEDS ORDERED: Mineral Oil Sterile 10 ML VIAL ONE (11:12)
[2021-10-26] MEDS ORDERED: Bupivacaine PF 0.5% 30 ML VIAL ONE (11:12)
[2021-10-26] MEDS ORDERED: Neomycin-Polymyxin 1 ML AMP ONE (11:12)
[2021-10-26] MEDS ORDERED: Thrombin 5000 UNITS/5 ML VIAL ONE (11:12)
[2021-10-26] MEDS ORDERED: PROPOFOL 200 MG/20 ML VIAL ONE (11:40)
[2021-10-26] MEDS ORDERED: ePHEDrine 50 MG/ML VIAL ONE (11:40)
[2021-10-26] MEDS ORDERED: Phenylephrine 10 MG/ML VIAL ONE (11:40)
[2021-10-26] MEDS ORDERED: Lidocaine 1% PF 5 ML VIAL ONE (11:40)
[2021-10-26] MEDS ORDERED: Glycopyrrolate 0.2 MG/ML 5 ML SYRINGE ONE (11:40)
== END 2021-10-26 15:15 | disposition home or self-care (01) ==
LOC: SDC 09:19
PROVIDERS: ATTEND Orthopaedic Surgery Hand Surgery
PROC: 0HREXK3 Replacement of Left Lower Arm Skin with Nonautologous Tissue Substitute, Full Thickness, External Approach (ICD-10-PCS; principal; 2021-10-26)
DX: S61.502A Unspecified open wound of left wrist, initial encounter (principal); I25.10 Atherosclerotic heart disease of native coronary artery without angina pectoris; I48.91 Unspecified atrial fibrillation; K21.9 Gastro-esophageal reflux disease without esophagitis; Z79.82 Long term (current) use of aspirin; Z79.899 Other long term (current) drug therapy; Z87.891 Personal history of nicotine dependence; Z95.1 Presence of aortocoronary bypass graft
CPT/HCPCS: J2370; J2704; J3490; S0020